=== PATIENT | female | born 1950 | race African-American/Black ===

== ENCOUNTER 2020-01-25 14:24 | Emergency (ER) | payer MEDICARE, MEDICAID ==
[~2020-01-25] VITALS: Ht 165.1 cm; Wt 54.0 kg
[~2020-01-25 14:24] MED LIST: KEPPRA; LOSA50TA41 PO; PHEN100C4 PO
[2020-01-25 16:01] LABS: HEMATOCRIT. 36.5 % (36.0-48.0); HEMOGLOBIN. 12.7 g/dL (12.0-16.0); MEAN CORPUSCULAR HEMOGLOBIN 33.2 pg (28.0-32.0); MEAN CORPUSCULAR VOLUME 95.2 fL (81.0-99.0); MEAN PLATELET VOLUME 8.5 fl (7.4-10.4); PLATELET 200 x1000/uL (130-400); RED BLOOD CELL COUNT 3.83 mill/uL (4.2-5.4); RED CELL DISTRIBUTION WIDTH 13.2 % (11.6-14.6)
[2020-01-25 16:10] LABS: CHLORIDE 109 mEq/L (98-107)
[2020-01-25 16:14] LABS: ETHANOL BLOOD < 10 mg/dL
[2020-01-25] MEDS ORDERED: TETANUS, DIPHTHERIA, PERTUSSIS VAC/PF 0.5ML (>7YR OLD) IM ONE (16:15)
[2020-01-25] MEDS ORDERED: LIDOCAINE HCL/EPINEPHRINE 1%-EPI 1:100,000 30 ML VIAL INFIL ONE (16:15)
[2020-01-25] MEDS ORDERED: LIDOCAINE HCL/EPINEPHRINE 1%-EPI 1:100,000 20 ML VIAL INFIL NR (16:25)
[2020-01-25] MEDS ORDERED: MORPHINE SULFATE 4 MG/ML CPJ (NOT FOR IM USE) IV ONE ×2 (17:42→21:45)
[2020-01-25 18:33] LABS: PLATELET ESTIMATE NORMAL
[2020-01-25] MEDS ORDERED: MORPHINE SULFATE 4 MG/ML CPJ (NOT FOR IM USE) IV STA (19:03)
[2020-01-25] MEDS ORDERED: ONDANSETRON HCL 4MG/2ML INJ IV STA (19:03)
[2020-01-25] MEDS ORDERED: CEFAZOLIN 1000MG PREMIX 50 ML IV ONE (20:30)
[2020-01-25] MEDS ORDERED: GENTAMICIN 80MG PREMIX 100 ML IV ONE (20:30)
[2020-01-25] MEDS: LEVETIRACETAM 500MG PREMIX 100 ML IV ONE ×2 (21:16→21:51)
[2020-01-25] MEDS ORDERED: CLONIDINE HCL 0.1MG/24HR PATCH TD ONE (22:15)
[2020-01-25] MEDS ORDERED: CLONIDINE 0.2MG TABLET PO ONE (22:15)
[2020-01-25 22:58] VITALS: BP 165/78
== END 2020-01-25 23:32 | disposition short-term general hospital (02) ==
LOC: ER 14:24 → EDBEDREQ 18:15 → EDBEDREQTM 18:15 → ENRESERV 20:53 → CANRESERV 20:53 → ER 23:32 → CANBEDREQ 01-26 02:20
DX: S02.622B Fracture of subcondylar process of left mandible, initial encounter for open fracture (principal); S06.2X9A Diffuse traumatic brain injury with loss of consciousness of unspecified duration, initial encounter; R56.9 Unspecified convulsions; I10 Essential (primary) hypertension; W18.39XA Other fall on same level, initial encounter; Y93.89 Activity, other specified; Y92.89 Other specified places as the place of occurrence of the external cause; Y99.8 Other external cause status
CPT/HCPCS: 36415; 70450; 70486; 71045; 80053; 80320; 83605; 85025; 90471; 90715; 93005; 96365; 96366; 96368; 96375; 96376; 99285; J0690; J1580; J1953; J2270; J2405; J3490; 96367; G0480

== ENCOUNTER 2021-10-25 11:27 | Inpatient (IN) | payer MEDICARE, MEDICAID ==
[~2021-10-25] VITALS: Ht 167.6 cm; Wt 75.6 kg
[~2021-10-25 11:27] MED LIST changes: +ABIL5 PO; +ACET-3163 MT; +ASPI-1406 MT; +DILT120C88 PO; +HYDR-4001 MT; -KEPPRA; +NALO4SPR BOTHNSTRLS; +PANT40TA51 MT; +POLY17PO3 PO; +TRAZ-251 PO
[2021-10-25] MEDS ORDERED: ACETAMINOPHEN 325MG TABLET PO STA (12:04)
[2021-10-25] MEDS ORDERED: IBUPROFEN 600MG TABLET PO STA (12:21)
[2021-10-25 12:41] LABS: BASOPHILS % 1.1 % (0.0-2.0); EOSINOPHILS % 2.6 % (0.0-5.0); HEMATOCRIT. 42.5 % (36.0-48.0); HEMOGLOBIN. 14.4 g/dL (12.0-16.0); LYMPHOCYTES % 40.6 % (20.0-50.0); MEAN CORPUSCULAR HEMOGLOBIN 32.7 pg (28.0-32.0); MEAN CORPUSCULAR VOLUME 96.3 fL (81.0-99.0); MEAN PLATELET VOLUME 8.3 fl (7.4-10.4); NEUTROPHILS % 45.7 % (40.0-76.0); PLATELET 270 x1000/uL (130-400); RED BLOOD CELL COUNT 4.41 mill/uL (4.2-5.4); RED CELL DISTRIBUTION WIDTH 12.5 % (11.6-14.6)
[2021-10-25 12:48] LABS: CHLORIDE 105 mEq/L (98-107)
[2021-10-25 14:26] LABS: CLARITY URINE CLEAR (CLEAR); COLOR URINE YELLOW (YELLOW); KETONES URINE NEGATIVE (NEGATIVE); LEUKOCYTE ESTERASE URINE TRACE (NEGATIVE); NITRITE URINE NEGATIVE (NEGATIVE); OCCULT BLOOD URINE 1+ (NEGATIVE); PROTEIN URINE TRACE (NEGATIVE); SPECIFIC GRAVITY URINE 1.012 (1.005-1.030); UROBILINOGEN URINE 0.2 E.U./dL (0.2-1.0)
[2021-10-25] MEDS ORDERED: ACETAMINOPHEN 325MG TABLET PO NR (15:36)
[2021-10-25] MEDS ORDERED: NAPR-681 PO (15:38)
[2021-10-25] MEDS ORDERED: GABAPENTIN 300MG CAPSULE PO ONE (19:00)
[2021-10-25] MEDS ORDERED: GABAPENTIN 300MG CAPSULE PO SCH (21:00)
[2021-10-25] MEDS ORDERED: DOCUSATE SODIUM 100MG CAPSULE PO PRN (21:15)
[2021-10-25] MEDS ORDERED: LORAZEPAM 2MG/ML CPJ IV PRN (21:15)
[2021-10-25] MEDS ORDERED: NITROGLYCERIN 0.4MG TABLET SL SL PRN (21:15)
[2021-10-25] MEDS ORDERED: MAGNESIUM/ALUMINUM HYDROXIDE/SIMETHICONE 30ML UDC PO PRN (21:15)
[2021-10-25] MEDS ORDERED: KETOROLAC 15MG/ML VIAL IV PRN (21:15)
[2021-10-25] MEDS ORDERED: BUTALBITAL/ACETAMINOPHEN/CAFFEINE 50/325/40MG TABLET PO PRN (21:15)
[2021-10-25] MEDS ORDERED: IPRATROPIUM/ALBUTEROL 0.5-3(2.5)MG/3ML NEB NEB PRN (21:15)
[2021-10-25] MEDS ORDERED: GUAIFENESIN 200MG/10ML SUGAR FREE UDC PO PRN (21:15)
[2021-10-25] MEDS ORDERED: ACETAMINOPHEN 325MG TABLET PO PRN (21:15)
[2021-10-25] MEDS: AMLODIPINE 10MG TABLET PO SCH (22:51)
[2021-10-25 22:54] LABS: FOLIC ACID (FOLATE) SERUM 11.6 ng/mL (>5.38)
[2021-10-25 23:38] LABS: ETHANOL BLOOD < 10 mg/dL; HDL CHOLESTEROL 100 mg/dL (40-59); LDL CHOLESTEROL 105 mg/dL (5-100); TOTAL IRON BINDING CAPACITY 232 ug/dL (250-450)
[2021-10-26] VITALS (7 sets, daily range): BP systolic 107–194; BP diastolic 63–101
[2021-10-26 00:03] LABS: CREATINE KINASE 72 IU/L (26-192); CREATINE KINASE MB FRACTION < 1.0 ng/mL (0.5-3.6)
[2021-10-26] MEDS: TRAMADOL 50MG TABLET PO PRN (01:19)
[2021-10-26] MEDS: CLONIDINE 0.1MG TABLET PO PRN (01:19)
[2021-10-26] MEDS: ACETAMINOPHEN 325MG TABLET PO PRN (01:29)
[2021-10-26] MEDS: FAMOTIDINE 20MG TABLET PO SCH ×3 (09:00→21:22)
[2021-10-26] MEDS: AMLODIPINE 10MG TABLET PO SCH (09:00)
[2021-10-26] MEDS: ASPIRIN 325MG EC TABLET PO SCH ×2 (09:00→11:08)
[2021-10-26] MEDS: ENOXAPARIN 30MG/0.3ML SYR SUBCUT SCH (09:23)
[2021-10-26] MEDS ORDERED: NALOXONE HCL 0.4MG/ML VIAL IV PRN (10:30)
[2021-10-26 12:05] LABS: BASOPHILS % 0.2 % (0.0-2.0); HEMATOCRIT. 37.8 % (36.0-48.0); HEMOGLOBIN. 12.8 g/dL (12.0-16.0); LYMPHOCYTES % 15.4 % (20.0-50.0); MEAN CORPUSCULAR HEMOGLOBIN 32.5 pg (28.0-32.0); MEAN PLATELET VOLUME 8.4 fl (7.4-10.4); MONOCYTES % 3.3 % (2.0-8.0); NEUTROPHILS % 81.1 % (40.0-76.0); PLATELET 254 x1000/uL (130-400); RED BLOOD CELL COUNT 3.94 mill/uL (4.2-5.4); RED CELL DISTRIBUTION WIDTH 12.7 % (11.6-14.6)
[2021-10-26 12:16] LABS: CHLORIDE 105 mEq/L (98-107)
[2021-10-26 12:23] LABS: PHOSPHORUS 3.4 mg/dL (2.5-4.9)
[2021-10-26 12:26] LABS: CREATINE KINASE MB FRACTION 1.1 ng/mL (0.5-3.6)
[2021-10-26] MEDS: PHENYTOIN SODIUM EXTENDED 100MG CAPSULE PO SCH (17:20)
[2021-10-27] VITALS: BP 124/80
[2021-10-27 04:00] VITALS: BP 133/78
[2021-10-27 08:00] VITALS: BP 133/99
[2021-10-27] MEDS: PHENYTOIN SODIUM EXTENDED 100MG CAPSULE PO SCH ×2 (09:14→17:14)
[2021-10-27] MEDS: ASPIRIN 325MG EC TABLET PO SCH (09:14)
[2021-10-27] MEDS: AMLODIPINE 10MG TABLET PO SCH (09:15)
[2021-10-27] MEDS: ENOXAPARIN 30MG/0.3ML SYR SUBCUT SCH (09:17)
[2021-10-27] MEDS: FAMOTIDINE 20MG TABLET PO SCH ×2 (09:18→20:34)
[2021-10-27 12:00] VITALS: BP 130/83
[2021-10-27] MEDS: ACETAMINOPHEN 325MG TABLET PO PRN ×2 (12:27→21:06)
[2021-10-27 16:00] VITALS: BP 132/80
[2021-10-27 20:00] VITALS: BP 134/82
[2021-10-28] VITALS: BP 132/84
[2021-10-28] MEDS: ZOLPIDEM TARTRATE 5MG TABLET PO PRN ×2 (00:42→22:09)
[2021-10-28] MEDS: ONDANSETRON HCL 4MG/2ML INJ IV PRN (03:29)
[2021-10-28 04:00] VITALS: BP 156/88
[2021-10-28 08:00] VITALS: BP 144/84
[2021-10-28] MEDS: FAMOTIDINE 20MG TABLET PO SCH ×2 (08:59→22:08)
[2021-10-28] MEDS: ENOXAPARIN 30MG/0.3ML SYR SUBCUT SCH (08:59)
[2021-10-28] MEDS: ASPIRIN 325MG EC TABLET PO SCH (08:59)
[2021-10-28] MEDS: PHENYTOIN SODIUM EXTENDED 100MG CAPSULE PO SCH ×2 (08:59→17:38)
[2021-10-28] MEDS: AMLODIPINE 10MG TABLET PO SCH (09:00)
[2021-10-28 12:00] VITALS: BP 135/81
[2021-10-28 16:00] VITALS: BP 138/72
[2021-10-28 20:00] VITALS: BP 152/86
[2021-10-28] MEDS: TRAMADOL 50MG TABLET PO PRN (22:11)
[2021-10-29] VITALS: BP 163/87
[2021-10-29] MEDS: ONDANSETRON HCL 4MG/2ML INJ IV PRN (00:59)
[2021-10-29] MEDS: CLONIDINE 0.1MG TABLET PO PRN (02:45)
[2021-10-29 04:00] VITALS: BP 156/82
[2021-10-29 08:00] VITALS: BP 133/78
[2021-10-29] MEDS: AMLODIPINE 10MG TABLET PO SCH (09:25)
[2021-10-29] MEDS: ASPIRIN 325MG EC TABLET PO SCH (09:25)
[2021-10-29] MEDS: ENOXAPARIN 30MG/0.3ML SYR SUBCUT SCH (09:25)
[2021-10-29] MEDS: PHENYTOIN SODIUM EXTENDED 100MG CAPSULE PO SCH (09:25)
[2021-10-29] MEDS: FAMOTIDINE 20MG TABLET PO SCH (09:25)
[2021-10-29 12:51] VITALS: BP 131/68
== END 2021-10-29 14:27 | disposition home or self-care (01) | DRG 54 ==
LOC: ER 12:56 → 6EST 18:47 → SUPCPDRO 21:07 → ENRESERV 21:53
PROVIDERS: ADMIT Internal Medicine; ATTEND Internal Medicine
DX: G44.209 Tension-type headache, unspecified, not intractable (principal); G92.8 Other toxic encephalopathy; G40.909 Epilepsy, unspecified, not intractable, without status epilepticus; I10 Essential (primary) hypertension; Z82.49 Family history of ischemic heart disease and other diseases of the circulatory system; Z87.891 Personal history of nicotine dependence; Z79.899 Other long term (current) drug therapy; Z88.8 Allergy status to other drugs, medicaments and biological substances; R42 Dizziness and giddiness
CPT/HCPCS: 36415; 70551; 71045; 80053; 80061; 80320; 81003; 82550; 82553; 82607; 82746; 83036; 83540; 83550; 83735; 84100; 84439; 84443; 84484; 85025; 93005; 93970; 97162; 97166; 97530; 99285; J1650; J2060; J2405; G0480

== ENCOUNTER 2022-03-27 19:47 | Inpatient (IN) | payer MEDICARE, MEDICAID ==
[~2022-03-27] VITALS: Ht 167.6 cm; Wt 52.2 kg
[~2022-03-27 19:47] MED LIST changes: -HYDR-4001 MT; -NALO4SPR BOTHNSTRLS; -POLY17PO3 PO
[2022-03-28] MEDS ORDERED: GABAPENTIN 300MG CAPSULE PO ONE (00:15)
[2022-03-28] MEDS ORDERED: ACETAMINOPHEN 325MG TABLET PO ONE (00:15)
[2022-03-28 00:40] LABS: BASOPHILS % 0.6 % (0.0-2.0); HEMATOCRIT. 38.2 % (36.0-48.0); HEMOGLOBIN. 12.9 g/dL (12.0-16.0); LYMPHOCYTES % 34.1 % (20.0-50.0); MEAN CORPUSCULAR HEMOGLOBIN 33.4 pg (28.0-32.0); MEAN CORPUSCULAR VOLUME 98.6 fL (81.0-99.0); MEAN PLATELET VOLUME 8.9 fl (7.4-10.4); MONOCYTES % 10.4 % (2.0-8.0); NEUTROPHILS % 53.9 % (40.0-76.0); PLATELET 194 x1000/uL (130-400); RED BLOOD CELL COUNT 3.88 mill/uL (4.2-5.4); RED CELL DISTRIBUTION WIDTH 12.9 % (11.6-14.6)
[2022-03-28 00:49] LABS: CHLORIDE 103 mEq/L (98-107)
[2022-03-28] MEDS ORDERED: ASPIRIN 81MG TABLET PO NR (04:30)
[2022-03-28 11:26] VITALS: BP 154/86
[2022-03-28 12:23] VITALS: BP 154/86
[2022-03-28] MEDS ORDERED: DOCUSATE SODIUM 100MG CAPSULE PO PRN (13:15)
[2022-03-28] MEDS ORDERED: CLONIDINE 0.1MG TABLET PO PRN (13:15)
[2022-03-28] MEDS ORDERED: IPRATROPIUM/ALBUTEROL 0.5-3(2.5)MG/3ML NEB HHN PRN (13:15)
[2022-03-28] MEDS ORDERED: LORAZEPAM 0.5MG TABLET PO PRN (13:15)
[2022-03-28] MEDS ORDERED: DILTIAZEM HCL 120MG CAPSULE ER 24HR PO SCH (13:15)
[2022-03-28] MEDS ORDERED: ACETAMINOPHEN 325MG TABLET PO PRN (13:15)
[2022-03-28] MEDS ORDERED: ONDANSETRON HCL 4MG/2ML INJ IV PRN (13:15)
[2022-03-28] MEDS ORDERED: HYDROCODONE/ACETAMINOPHEN 5/325MG TABLET PO PRN (13:15)
[2022-03-28] MEDS: ASPIRIN 81MG EC TABLET PO SCH (13:15)
[2022-03-28] MEDS: LOSARTAN POTASSIUM 50 MG TABLET PO SCH (13:36)
[2022-03-28] MEDS: PANTOPRAZOLE 40MG DR TABLET PO SCH (13:36)
[2022-03-28] MEDS: GABAPENTIN 300MG CAPSULE PO SCH ×2 (13:37→21:24)
[2022-03-28] MEDS: PHENYTOIN SODIUM EXTENDED 100MG CAPSULE PO SCH ×2 (13:37→17:09)
[2022-03-28] MEDS ORDERED: DILTIAZEM HCL 60MG TABLET PO SCH (14:00)
[2022-03-28] MEDS ORDERED: DILTIAZEM HCL 30MG TABLET PO SCH (15:15)
[2022-03-28 16:19] VITALS: BP 154/92
[2022-03-28 20:00] VITALS: BP 148/81
[2022-03-28] MEDS: TRAZODONE HCL 50MG TABLET PO SCH (21:24)
[2022-03-28] MEDS: ARIPIPRAZOLE 5MG TABLET PO SCH (21:25)
[2022-03-28] MEDS: DILTIAZEM HCL 30MG TABLET PO SCH (21:25)
[2022-03-29] VITALS: BP 131/78
[2022-03-29] MEDS: DILTIAZEM HCL 30MG TABLET PO SCH ×4 (02:23→21:48)
[2022-03-29] MEDS: ACETAMINOPHEN 325MG TABLET PO PRN ×2 (02:23→14:51)
[2022-03-29 04:00] VITALS: BP 118/70
[2022-03-29] MEDS: GABAPENTIN 300MG CAPSULE PO SCH ×3 (05:00→21:47)
[2022-03-29 08:11] VITALS: BP 137/80
[2022-03-29] MEDS: ASPIRIN 81MG EC TABLET PO SCH (08:47)
[2022-03-29] MEDS: LOSARTAN POTASSIUM 50 MG TABLET PO SCH (08:47)
[2022-03-29] MEDS: PHENYTOIN SODIUM EXTENDED 100MG CAPSULE PO SCH ×2 (08:47→16:59)
[2022-03-29] MEDS: PANTOPRAZOLE 40MG DR TABLET PO SCH (08:48)
[2022-03-29 12:25] VITALS: BP 144/78
[2022-03-29 16:01] VITALS: BP 131/76
[2022-03-29 20:00] VITALS: BP 148/79
[2022-03-29] MEDS: TRAZODONE HCL 50MG TABLET PO SCH (21:47)
[2022-03-29] MEDS: ARIPIPRAZOLE 5MG TABLET PO SCH (21:48)
[2022-03-30] VITALS: BP 140/68
[2022-03-30] MEDS: DILTIAZEM HCL 30MG TABLET PO SCH ×3 (03:21→17:26)
[2022-03-30 03:59] VITALS: BP 138/84
[2022-03-30] MEDS: GABAPENTIN 300MG CAPSULE PO SCH ×2 (06:04→12:13)
[2022-03-30 08:00] VITALS: BP 173/92
[2022-03-30] MEDS: ASPIRIN 81MG EC TABLET PO SCH (10:17)
[2022-03-30] MEDS: LOSARTAN POTASSIUM 50 MG TABLET PO SCH (10:17)
[2022-03-30] MEDS: PHENYTOIN SODIUM EXTENDED 100MG CAPSULE PO SCH (10:17)
[2022-03-30] MEDS: PANTOPRAZOLE 40MG DR TABLET PO SCH (10:17)
[2022-03-30 12:00] VITALS: BP 159/87
[2022-03-30] MEDS ORDERED: GABA-532 PO (15:49)
[2022-03-30 17:25] VITALS: BP 139/85
[2022-03-30 17:36] VITALS: BP 139/85
== END 2022-03-30 18:28 | disposition home health service (06) | DRG 199 ==
LOC: ER 19:47 → 7WST 03-28 04:18 → 6WST 03-28 11:15
PROVIDERS: ADMIT Internal Medicine; ATTEND Internal Medicine
PROC: 4A00X4Z Measurement of Central Nervous Electrical Activity, External Approach (ICD-10-PCS; principal; 2022-03-30)
DX: I16.1 Hypertensive emergency (principal); G45.9 Transient cerebral ischemic attack, unspecified; G40.909 Epilepsy, unspecified, not intractable, without status epilepticus; G89.29 Other chronic pain; I10 Essential (primary) hypertension; M79.2 Neuralgia and neuritis, unspecified; H26.9 Unspecified cataract; H43.819 Vitreous degeneration, unspecified eye; Z86.73 Personal history of transient ischemic attack (TIA), and cerebral infarction without residual deficits; Z90.710 Acquired absence of both cervix and uterus; Z88.8 Allergy status to other drugs, medicaments and biological substances
CPT/HCPCS: 36415; 71045; 80053; 80061; 80185; 85025; 85651; 95816; 99285

== ENCOUNTER 2022-06-21 12:20 | Emergency (ER) | payer MEDICARE, MEDICAID ==
[~2022-06-21] VITALS: Ht 165.1 cm; Wt 68.0 kg
[~2022-06-21 12:20] MED LIST changes: +GABA-532 PO
[2022-06-21 12:26] VITALS: BP 144/82
[2022-06-21] MEDS ORDERED: ACETAMINOPHEN 325MG TABLET PO STA (13:01)
[2022-06-21] MEDS ORDERED: SODIUM CHLORIDE 0.9% 1,000 ML IV ONE (13:15)
[2022-06-21 15:13] LABS: BASOPHILS % 0.5 % (0.0-2.0); EOSINOPHILS % 0.2 % (0.0-5.0); HEMATOCRIT. 40.6 % (36.0-48.0); HEMOGLOBIN. 13.6 g/dL (12.0-16.0); LYMPHOCYTES % 28.5 % (20.0-50.0); MEAN CORPUSCULAR HEMOGLOBIN 32.4 pg (28.0-32.0); MEAN CORPUSCULAR VOLUME 96.7 fL (81.0-99.0); MONOCYTES % 7.2 % (2.0-8.0); NEUTROPHILS % 63.6 % (40.0-76.0); PLATELET 224 x1000/uL (130-400); RED CELL DISTRIBUTION WIDTH 12.9 % (11.6-14.6)
[2022-06-21 15:27] LABS: CHLORIDE 101 mEq/L (98-107)
[2022-06-21] MEDS ORDERED: BENZ200C52 MT (15:47)
[2022-06-21] MEDS ORDERED: ACETAMINOPHEN 325MG TABLET PO NR (17:45)
== END 2022-06-21 18:27 | disposition home or self-care (01) ==
LOC: ER 12:20
DX: R05.9 Cough, unspecified (principal); R51.9 Headache, unspecified; I10 Essential (primary) hypertension; G40.909 Epilepsy, unspecified, not intractable, without status epilepticus; Z20.822 Contact with and (suspected) exposure to COVID-19; Z90.710 Acquired absence of both cervix and uterus; Z88.5 Allergy status to narcotic agent
CPT/HCPCS: 36415; 71045; 80053; 84145; 84484; 85025; 87426; 87804; 96360; 99284; C9803; J7030

== ENCOUNTER 2023-05-29 10:46 | Emergency (ER) | payer MEDICARE, MEDICAID ==
[~2023-05-29] VITALS: Ht 162.6 cm; Wt 70.0 kg
[~2023-05-29 10:46] MED LIST changes: +BENZ200C52 MT
[2023-05-29 10:48] VITALS: O2SAT 99
[2023-05-29] MEDS ORDERED: AMLO5TAB88 PO (15:27)
[2023-05-29] MEDS ORDERED: LOSA50TA41 PO (15:27)
[2023-05-29] MEDS ORDERED: ALEN70TA79 PO (15:27)
[2023-05-29] MEDS ORDERED: CHOL200059 PO (15:27)
[2023-05-29] MEDS ORDERED: PHEN100C12 PO (15:27)
[2023-05-29] MEDS ORDERED: LOSARTAN 50 MG TABLET PO SCH (15:30)
[2023-05-29] MEDS ORDERED: HYDROCODONE/ACETAMINOPHEN 5/325MG TABLET PO ONE (15:30)
[2023-05-29] MEDS ORDERED: ONDANSETRON 4MG ODT PO NR (17:45)
[2023-05-29] MEDS ORDERED: ONDANSETRON 4MG ODT PO ONE (17:45)
[2023-05-29] MEDS ORDERED: AMLO5TAB88 MT (19:33)
[2023-05-29] MEDS ORDERED: TOPUD MT (19:33)
[2023-05-29] MEDS ORDERED: ONDA4TAB50 MT (19:33)
[2023-05-29] MEDS ORDERED: DEXT30SU17 MT (19:33)
[2023-05-29] MEDS ORDERED: CLONIDINE 0.1MG TABLET PO ONE (22:30)
[2023-05-30 00:32] VITALS: BP 136/78; PULSE 76; RESP 18; TEMP 97.7
== END 2023-05-30 04:20 | disposition home or self-care (01) ==
LOC: ER 10:59
DX: B34.9 Viral infection, unspecified (principal); I10 Essential (primary) hypertension; F12.90 Cannabis use, unspecified, uncomplicated; Z90.710 Acquired absence of both cervix and uterus; Z88.5 Allergy status to narcotic agent; Z20.822 Contact with and (suspected) exposure to COVID-19
CPT/HCPCS: 87804 ×2; 70450; 99284; 87426; Q0162

== ENCOUNTER 2023-11-29 20:21 | Emergency (ER) | payer MEDICARE, MEDICAID ==
[~2023-11-29] VITALS: Ht 175.3 cm; Wt 55.0 kg
[~2023-11-29 20:21] MED LIST changes: -ABIL5 PO; -ACET-3163 MT; +ALEN70TA79 PO; -BENZ200C52 MT; +CHOL200059 PO; -DILT120C88 PO; -GABA-532 PO; +HYDR12.54 MT; +METO25TA6 MT; -PANT40TA51 MT; +PHEN100C12 PO; -PHEN100C4 PO; -TRAZ-251 PO
[2023-11-29 20:22] VITALS: O2SAT 99
[2023-11-29] MEDS ORDERED: LOSARTAN 25 MG TABLET PO STA (20:46)
[2023-11-29] MEDS: LOSARTAN 50 MG TABLET PO NR (21:28)
[2023-11-29 21:30] VITALS: TEMP 98
[2023-11-29 21:35] LABS: HEMATOCRIT 37.6 % (36.0-48.0); HEMOGLOBIN 12.6 g/dL (12.0-16.0); MEAN CORPUSCULAR HGB CONC 33.5 g/dL (31.0-37.0); MEAN CORPUSCULAR VOLUME 98.4 fL (81.0-99.0); PLATELET 176 x1000/uL (130-400); RED BLOOD CELL COUNT 3.83 mill/uL (4.2-5.4); RED CELL DISTRIBUTION WIDTH 13.4 % (11.6-14.6); WHITE BLOOD COUNT 3.7 x1000/uL (4.5-11.0)
[2023-11-29 21:43] LABS: CHLORIDE 103 mEq/L (98-107); POTASSIUM 4.4 mEq/L (3.5-5.1); SODIUM 136 mEq/L (136-145)
[2023-11-29 21:44] LABS: CARBON DIOXIDE 28 mEq/L (21-32)
[2023-11-29 21:49] LABS: GLUCOSE 104 mg/dL (70-105); UREA NITROGEN BLOOD 10 mg/dL (9-23)
[2023-11-29] MEDS ORDERED: ACETAMINOPHEN 325MG TABLET PO STA (22:43)
[2023-11-30 02:15] VITALS: BP 141/88; PULSE 83; RESP 18
== END 2023-11-30 02:18 | disposition home or self-care (01) ==
LOC: ER 20:21
DX: I10 Essential (primary) hypertension (principal); R51.9 Headache, unspecified; Z88.5 Allergy status to narcotic agent; Z79.899 Other long term (current) drug therapy
CPT/HCPCS: 36415; 80048; 85027; 99284

== ENCOUNTER 2023-12-13 19:55 | Emergency (ER) | payer MEDICARE, MEDICAID ==
[~2023-12-13] VITALS: Ht 170.2 cm; Wt 73.0 kg
[2023-12-13 20:00] VITALS: TEMP 98.2; O2SAT 96
[2023-12-13] MEDS: HYDRALAZINE 20MG/ML VIAL IV ONE (23:45)
[2023-12-14 00:30] LABS: BASOPHILS % 0.8 % (0.0-2.0); EOSINOPHILS % 4.9 % (0.0-5.0); HEMATOCRIT. 36.7 % (36.0-48.0); HEMOGLOBIN. 12.6 g/dL (12.0-16.0); MEAN CORPUSCULAR HEMOGLOBIN 33.5 pg (28.0-32.0); MEAN CORPUSCULAR HGB CONC 34.5 g/dL (31.0-37.0); MEAN PLATELET VOLUME 8.2 fl (7.4-10.4); NEUTROPHILS % 37.3 % (40.0-76.0); PLATELET 215 x1000/uL (130-400); RED BLOOD CELL COUNT 3.78 mill/uL (4.2-5.4); RED CELL DISTRIBUTION WIDTH 13.2 % (11.6-14.6)
[2023-12-14 00:36] LABS: CHLORIDE 106 mEq/L (98-107); POTASSIUM 4.6 mEq/L (3.5-5.1); SODIUM 140 mEq/L (136-145)
[2023-12-14 00:37] LABS: CARBON DIOXIDE 31 mEq/L (21-32)
[2023-12-14 00:42] LABS: GLUCOSE 89 mg/dL (70-105); UREA NITROGEN BLOOD 11 mg/dL (9-23)
[2023-12-14 01:56] VITALS: BP 150/68; PULSE 62; RESP 18
== END 2023-12-14 01:57 | disposition home or self-care (01) ==
LOC: ER 19:55
DX: I10 Essential (primary) hypertension (principal); R42 Dizziness and giddiness; Z88.5 Allergy status to narcotic agent; Z79.899 Other long term (current) drug therapy
CPT/HCPCS: 36415; 80048; 85025; 93005; 99285

== ENCOUNTER 2024-01-18 09:25 | Emergency (ER) | payer MEDICARE, MEDICAID ==
[~2024-01-18] VITALS: Ht 167.6 cm; Wt 52.0 kg
[2024-01-18 09:28] VITALS: O2SAT 98
[2024-01-18] MEDS: LEVETIRACETAM 500MG PREMIX 100 ML IV ONE (09:51)
[2024-01-18 10:01] LABS: CHLORIDE 107 mEq/L (98-107); SODIUM 138 mEq/L (136-145)
[2024-01-18 10:02] LABS: CARBON DIOXIDE 23 mEq/L (21-32)
[2024-01-18 10:03] LABS: CALCIUM 8.8 mg/dL (8.7-10.4)
[2024-01-18 10:07] LABS: CREATININE 1.2 mg/dL (0.6-1.0)
[2024-01-18 10:08] LABS: GLUCOSE 108 mg/dL (70-105); PHENYTOIN 9.4 ug/mL (10-20); UREA NITROGEN BLOOD 14 mg/dL (9-23)
[2024-01-18 10:18] LABS: BASOPHILS % 0.9 % (0.0-2.0); DIFFERENTIAL COMMENT 0; EOSINOPHILS % 4.3 % (0.0-5.0); HEMATOCRIT. 39.2 % (36.0-48.0); HEMOGLOBIN. 13.1 g/dL (12.0-16.0); LYMPHOCYTES % 29.7 % (20.0-50.0); MEAN CORPUSCULAR HEMOGLOBIN 33.7 pg (28.0-32.0); MEAN CORPUSCULAR HGB CONC 33.4 g/dL (31.0-37.0); MEAN CORPUSCULAR VOLUME 100.8 fL (81.0-99.0); MEAN PLATELET VOLUME 8.1 fl (7.4-10.4); MONOCYTES % 6.8 % (2.0-8.0); NEUTROPHILS % 58.3 % (40.0-76.0); PLATELET 207 x1000/uL (130-400); RED BLOOD CELL COUNT 3.88 mill/uL (4.2-5.4); RED CELL DISTRIBUTION WIDTH 13.3 % (11.6-14.6); WHITE BLOOD COUNT 3.4 x1000/uL (4.5-11.0)
[2024-01-18] MEDS: PHENYTOIN SODIUM EXTENDED 100MG CAPSULE PO ONE (11:40)
[2024-01-18 12:32] LABS: ETHANOL BLOOD < 10 mg/dL (<10)
[2024-01-18 13:07] VITALS: BP 135/67; PULSE 72; RESP 14; TEMP 37.16964; O2SAT 98
== END 2024-01-18 13:08 | disposition home or self-care (01) ==
LOC: ER 09:35
DX: G40.89 Other seizures (principal); I10 Essential (primary) hypertension; Z90.710 Acquired absence of both cervix and uterus; Z79.899 Other long term (current) drug therapy; Z88.5 Allergy status to narcotic agent
CPT/HCPCS: 80048; 80320; 80185; 85025; 36415; 70450; 99284; J1953; G0480